=== PATIENT | male | born 1960 | race Caucasian/White ===

== ENCOUNTER 2016-10-27 00:39 | Emergency (ER) | payer MEDICAID, MEDICARE, OTHER ==
[~2016-10-27] VITALS: Ht 188 cm; Wt 78.0 kg
[2016-10-27 00:54] VITALS: BP 125/85; PULSE 90; RESP 18; TEMP 98.4; O2SAT 100
[2016-10-27] MEDS ORDERED: SEIZURE MEDICATION (01:02)
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
[2016-10-27] MEDS ORDERED: TETANUS/DIPHTHERIA TOXOID ADULT 0.5 ML VIAL IM ONE (01:15)
[2016-10-27 01:25] LABS: AUTOMATED NEUTROPHIL # 11.1 TH/MM3 (1.8-7.7); BASOPHIL # 0.1 TH/MM3 (0-0.2); BASOPHIL % 0.5 % (0.0-2.0); EOSINOPHIL # 0.1 TH/MM3 (0-0.4); EOSINOPHIL % 0.9 % (0.0-4.0); HEMATOCRIT 42.7 % (39.0-51.0); HEMO FLAGS DIFF FINAL; LYMPH % 6.8 % (9.0-44.0); LYMPHOCYTE # 0.9 TH/MM3 (1.0-4.8); MEAN CELL VOLUME 92.2 FL (80.0-100.0); MEAN CORPUSCULAR HGB CONC 34.7 % (32.0-36.0); MONO % 12.1 % (0.0-8.0); NEUT % 79.7 % (16.0-70.0); PLATELET COUNT 218 TH/MM3 (150-450); RED BLOOD COUNT 4.63 MIL/MM3 (4.50-5.90); RED CELL DISTRIBUTION WIDTH 17.1 % (11.6-17.2); WHITE BLOOD COUNT 13.9 TH/MM3 (4.0-11.0)
--- NOTE | 2016-10-27 01:36 | RADRPT ---
EXAM DATE/TIME: 10/27/2016 01:08 [facility] COMPARISON: No previous studies available for comparison. INDICATIONS : Altered mental status. Hallucinations. RADIATION DOSE: 56.35 CTDIvol (mGy) MEDICAL HISTORY : Seizures. SURGICAL HISTORY : None. ENCOUNTER: Initial ACUITY: 1 day PAIN SCALE: 0/10 LOCATION: cranial TECHNIQUE: Multiple contiguous axial images were obtained of the head. Using automated exposure control and adj ustment of the mA and/or kV according to patient size, radiation dose was kept as low as reasonably a chievable to obtain optimal diagnostic quality images. DICOM format image data is available electro nically for review and comparison. FINDINGS: CEREBRUM: The ventricles are normal for age. No evidence of midline shift, mass lesion, hemorrhage or acute in farction. No extra-axial fluid collections are seen. There is mild chronic-appearing low attenuation in the periventricular white matter. A 5 mm non-acute lacunar infarct involves the left head of caud ate. POSTERIOR FOSSA: The cerebellum and brainstem are intact. The 4th ventricle is midline. The cerebellopontine angle i s unremarkable. EXTRACRANIAL: The visualized portion of the orbits is intact. SKULL: The calvaria is intact. No evidence of skull fracture. CONCLUSION: No acute intracranial abnormality. Small nonacute lacunar infarct left head of caudate nucleus and mi ld chronic white matter changes. Timmy Paulson MD on October 27, 2016 at 1:34 Board Certified Radiologist. This report was verified electronically.
[2016-10-27 01:40] LABS: ALT (GPT) 16 U/L (12-78); ANION GAP 10 MEQ/L (5-15); AST (GOT) 23 U/L (15-37); BICARBONATE 24.7 MEQ/L (21.0-32.0); BLOOD UREA NITROGEN 13 MG/DL (7-18); CHLORIDE 98 MEQ/L (98-107); GLOMERULAR FILTRATION RATE 29 ML/MIN (>89); POTASSIUM 3.6 MEQ/L (3.5-5.1); SODIUM (NA) 133 MEQ/L (136-145)
[2016-10-27 01:42] LABS: ALKALINE PHOSPHATASE 124 U/L (45-117); TOTAL BILIRUBIN ADULT 0.5 MG/DL (0.2-1.0)
[2016-10-27] MEDS ORDERED: OLANZapine IM 10 MG VIAL IM ONE (01:45)
[2016-10-27 01:46] LABS: ACETAMINOPHEN LESS THAN 2.0 MCG/ML (10.0-30.0); ALCOHOL LESS THAN 3 MG/DL (0-5)
[2016-10-27 07:00] VITALS: BP 118/78; PULSE 78; RESP 16; O2SAT 99
[2016-10-27 12:00] VITALS: BP 138/78; PULSE 84; RESP 16; TEMP 98.2; O2SAT 98
[2016-10-27 14:38] VITALS: BP 114/68
[2016-10-27 15:42] VITALS: BP 110/76; PULSE 73; RESP 18; TEMP 98.2; O2SAT 100
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
== END 2016-10-27 18:23 | disposition home or self-care (01) ==
LOC: NEPC 00:39 → NEPJ 18:23
DX: F15.959 Other stimulant use, unspecified with stimulant-induced psychotic disorder, unspecified (principal); R44.1 Visual hallucinations; F31.9 Bipolar disorder, unspecified; R56.9 Unspecified convulsions; N28.9 Disorder of kidney and ureter, unspecified; Z72.0 Tobacco use; Z23 Encounter for immunization
CPT/HCPCS: 70450; 80053; 80307; 85025; 90471; 90714; 96372